=== PATIENT | male | born 1965 | race Caucasian/White ===

== ENCOUNTER 2018-01-06 03:14 | Emergency (ER) | payer BC ==
[~2018-01-06] VITALS: Ht 180.3 cm; Wt 99.8 kg
--- NOTE | 2018-01-06 03:30 | NUR ---
pt bib self from home c/o left thumb pain. per pt said he smashed it yesterday around 7pm. pt waiting comfortably in bed. no s/s of acute distress or sob noted. vs stable. pt being seen by md at bedside.
--- NOTE | 2018-01-06 03:37 | NUR ---
xray for left thumb being taken at bedside
[2018-01-06] MEDS ORDERED: IBUPROFEN 400 MG TABLET PO ONE (04:00)
[2018-01-06] MEDS ORDERED: IBUPROFEN 400 MG TABLET ONE (04:00)
--- NOTE | 2018-01-06 04:01 | NUR ---
motrin 800mg given po for pain.
[2018-01-06 04:07] VITALS: BP 150/92
--- NOTE | 2018-01-06 04:12 | NUR ---
Patient discharged to home in stable condition. Written and verbal after care instructions given. Patient verbalizes understanding of instruction. patient left by foot, walking with steady gait. no s/s of acute distress or sob noted. vs stable.
== END 2018-01-06 04:11 | disposition home or self-care (01) ==
LOC: ER 03:16
DX: S67.02XA Crushing injury of left thumb, initial encounter (principal); W23.1XXA Caught, crushed, jammed, or pinched between stationary objects, initial encounter; Y93.89 Activity, other specified; Y92.89 Other specified places as the place of occurrence of the external cause; Y99.8 Other external cause status
CPT/HCPCS: 73140; 99284; A4606; Z7610

== ENCOUNTER 2020-05-15 20:27 | Emergency (ER) | payer BC ==
[~2020-05-15] VITALS: Ht 182.9 cm; Wt 99.8 kg
--- NOTE | 2020-05-15 21:04 | NUR ---
pt states he will wait in car call back # [phone]
[2020-05-15] MEDS ORDERED: IBUPROFEN 600 MG TABLET ONE (21:58)
[2020-05-15] MEDS ORDERED: IBUPROFEN 600 MG TABLET PO ONE (22:00)
[2020-05-15] MEDS ORDERED: IV NS 0.9% 1,000 ML BAG IV ONE (22:00)
--- NOTE | 2020-05-15 22:16 | NUR ---
COVID AND FLU SWAB SENT
[2020-05-15 22:52] VITALS: BP 140/61
[2020-05-15] MEDS ORDERED: AZITHROMYCIN 250 MG TABLET ONE (22:53)
[2020-05-15] MEDS ORDERED: AZITHROMYCIN 250 MG TABLET PO ONE (23:00)
--- NOTE | 2020-05-15 23:27 | NUR ---
Patient discharged to home in stable condition. Written and verbal after care instructions given. Patient verbalizes understanding of instruction. IV removed. Catheter intact and site benign. Pressure and 4x4 applied to site. No bleeding noted.
--- NOTE | 2020-05-17 12:13 | NUR ---
CALLED [phone] AND LEFT A MESSAGE TO CALL BACK
--- NOTE | 2020-05-17 12:56 | NUR ---
CALL BACK FROM [facility],INFORMED OF (+) COVID RESULT
== END 2020-05-15 23:27 | disposition home or self-care (01) ==
LOC: ER 20:30
DX: U07.1 COVID-19 (principal); J12.89 Other viral pneumonia; R00.0 Tachycardia, unspecified; R03.0 Elevated blood-pressure reading, without diagnosis of hypertension
CPT/HCPCS: 71045; 87804; 96360; 99284; C9803; J7030; U0003